=== PATIENT | male | born 1975 | race African-American/Black ===

== ENCOUNTER 2019-12-19 04:10 | Emergency (ER) | payer BC ==
[2019-12-19] MEDS ORDERED: HYDROCODONE/ACETAMINOPHEN 5-325 MG (6 TAB/ER DISP) PO PRN (05:57)
--- NOTE | 2019-12-19 06:01 | ER Document Report ---
ED General - General Chief Complaint: Abscess Stated Complaint: JAW PAIN Time Seen by Provider: 12/19/19 05:45 Primary Care Provider: [facility] [Provider Group] - Follow up in 3-5 days FREDDY BARNES MD [COMMUNITY BASED STAFF] - Follow up in 3-5 days Notes: 44-year-old male presents with 5-day history of possible abscesses to left jaw. Patient states he has a history of ingrown hairs. Patient denies any fever. Patient states he squeezed the abscesses and there was pus drainage with mild relief in swelling. Patient denies any previous history of abscess. Patient has no past medical history of diabetes. TRAVEL OUTSIDE OF THE [place] IN LAST 30 DAYS: No - Related Data Allergies/Adverse Reactions: No Known Allergies Allergy (Verified 12/19/19 05:05) Past Medical History - Social History Smoking Status: Current Every Day Smoker Family History: Reviewed & Not Pertinent Patient has suicidal ideation: No Patient has homicidal ideation: No Past Surgical History: Reports: Hx Orthopedic Surgery - Right Foot, Left wrist - Immunizations Hx Diphtheria, Pertussis, Tetanus Vaccination: No Review of Systems - Review of Systems Notes: Constitutional: Negative for fever. HENT: Negative for sore throat. Eyes: Negative for visual changes. Cardiovascular: Negative for chest pain. Respiratory: Negative for shortness of breath. Gastrointestinal: Negative for abdominal pain, vomiting or diarrhea. Genitourinary: Negative for dysuria. Musculoskeletal: Negative for back pain. Skin: Positive for abscess. Negative for rash. Neurological: Negative for headaches, weakness or numbness. 10 point ROS negative except as marked above and in HPI. Physical Exam - Vital signs Vitals: Temp Pulse Resp BP Pulse Ox 98.1 F 72 16 115/62 100 12/19/19 05:11 12/19/19 05:11 12/19/19 05:11 12/19/19 05:11 12/19/19 05:11 - Notes Notes: GENERAL: Well-appearing, well-nourished and in no acute distress. HEAD: Atraumatic, normocephalic. EYES: Extraocular movements intact, sclera anicteric, conjunctiva are normal. ENT: TMs normal, nares patent, oropharynx clear without exudates. Moist mucous membranes. NECK: Normal range of motion, supple without lymphadenopathy or JVD. EXTREMITIES: Normal range of motion, no pitting or edema. No clubbing or cyanosis. NEUROLOGICAL: Cranial nerves II through XII grossly intact. Normal speech, normal gait. PSYCH: Normal mood, normal affect. SKIN: Two small firm areas noted to left jaw. No purulent drainage or erythema. Approximately 1-2 cm. Not fluctuant. Warm, Dry, normal turgor, no rashes or lesi ons noted. Course - Re-evaluation Re-evalutation: 12/19/19 Nontoxic, well appearing 44 male presents for 2 abscesses to left jaw. Afebrile. Non-tachycardic. No fluctuance. No erythema. No purulent drainage. Pt prescribed Bactroban and Keflex. Pt to return to ER in 48 hours for recheck. Pt given strict return precautions and follow up with PCP. Pt voices understanding and agrees with plan of care. - Vital Signs Vital signs: Temp Pulse Resp BP Pulse Ox 98.1 F 72 16 115/62 100 12/19/19 05:11 12/19/19 05:11 12/19/19 05:11 12/19/19 05:11 12/19/19 05:11 Discharge - Discharge Clinical Impression: Abscess Condition: Stable Disposition: HOME, SELF-CARE Instructions: Abscess ([facility]), Cephalexin ([facility]) Additional Instructions: Please take Keflex as prescribed and finish all doses even if you feel better. Please take ibuprofen as prescribed for pain. Please take [place] for breakthrough pain. Do not drink or drive while taking [place] as it may make you drowsy. Please use Bactroban ointment to area as prescribed. Please return to ER for recheck in 48 hours. Please use warm compresses as discussed. Return immediately to ER if you start having any worsening symptoms, including fever, increased swelling, redness to area, area feeling hotter than surrounding skin, inability to swallow, or any other symptoms that are concerning to you. Prescriptions: Mupirocin [Bactroban 2% Ointment 22 gm] 1 applic TP TID #1 tube Cephalexin Monohydrate [Keflex 500 mg Capsule] 500 mg PO Q8 10 Days #40 capsule Ibuprofen [Motrin 800 mg Tablet] 800 mg PO Q8H PRN #30 tab PRN Reason: Forms: Return to Work Referrals: FREDDY BARNES MD [COMMUNITY BASED STAFF] - Follow up in 3-5 days [facility] [Provider Group] - Follow up in 3-5 days
[2019-12-19 06:29] VITALS: BP 126/55
== END 2019-12-19 06:34 | disposition home or self-care (01) ==
LOC: ER 04:10
DX: L02.01 Cutaneous abscess of face (principal); F17.200 Nicotine dependence, unspecified, uncomplicated
CPT/HCPCS: 99282

== ENCOUNTER 2020-05-29 05:28 | Emergency (ER) | payer SELFPAY ==
[2020-05-29 05:41] VITALS: BP 142/86
--- NOTE | 2020-05-29 05:43 | ER Document Report ---
ED General - General Chief Complaint: Laceration Stated Complaint: FINGER LACERATION Time Seen by Provider: 05/29/20 05:36 Notes: 44-year-old [id number] male presents with left index finger laceration to the volar side of his finger with a kitchen knife 2 hours ago. Bleeding controlled. He put salt on the wound for unknown reason. His tetanus is up-to-date is not diabetic and he has no numbness or tingling TRAVEL OUTSIDE OF THE [place] IN LAST 30 DAYS: No - Related Data Allergies/Adverse Reactions: No Known Allergies Allergy (Verified 12/19/19 05:05) Past Medical History - General Information source: Patient - Social History Smoking Status: Unknown if Ever Smoked Family History: Reviewed & Not Pertinent Past Surgical History: Reports: Hx Orthopedic Surgery - Right Foot, Left wrist - Immunizations Hx Diphtheria, Pertussis, Tetanus Vaccination: No Review of Systems - Review of Systems Notes: REVIEW OF SYSTEMS GEN: Denies fever, chills, weight loss ENT: Denies sore throat, nasal discharge, ear pain EYES: Denies blurry vision, eye pain, discharge CV: Denies chest pain, palpitations, edema RESP: Denies cough, shortness of breath, wheezing GI: Denies abdominal pain, nausea, vomiting, diarrhea MSK: Finger laceration SKIN: Denies rash, skin lesions LYMPH: Denies swollen glands/lymph nodes NEURO: Denies headache, focal weakness or numbness, dizziness PSYCH: Denies depression, suicidal or homicidal ideation PHYSICAL EXAMINATION General: No acute distress, well-nourished Head: Atraumatic, normocephalic ENT: Mouth normal, oropharynx moist, lips normal Eyes: Conjunctiva normal, pupils equal, lids normal Neck: No JVD, supple, no guarding Resp: No resp distress, equal chest rise GI: Nondistended, no guarding Back: No midline or CVA tenderness Ext: No deformities, no edema Skin: Well-perfused, no rash. 1.5 cm laceration middle phalangeal segment left volar index finger, bleeding controlled good distal circulation. No paresthesias. Neuro: Awake, alert. Face symmetric. Course - Re-evaluation Re-evalutation: 05/29/20 05:42 Superficial laceration with knife irrigated and sink, cleaned and closed with Dermabond. I have discussed with the patient there likely diagnosis, aftercare plan, follow-up plans and my usual and customary return precautions. They verbalized understanding of this. Procedures - Laceration/Wound Repair Left Anterior Finger 2nd digit Wound length (cm): 1.6 Wound's Depth, Shape: Superficial, Linear Laceration pre-procedure: Other - High-pressure irrigation and sink Anesthetic type: Other Wound explored: Clean Wound Repaired With: Dermabond - 2 layers Post-procedure NV exam normal: Yes Complications: No Discharge - Discharge Clinical Impression: Laceration of left index finger w/o foreign body w/o damage to nail Qualifiers: Encounter type: initial encounter Qualified Code(s): S61.211A - Laceration with out foreign body of left index finger without damage to nail, initial encounter Condition: Good Disposition: HOME, SELF-CARE Instructions: Laceration Care ([facility]) Additional Instructions: Skin glue will dissolve in 2-3 days
== END 2020-05-29 05:58 | disposition home or self-care (01) ==
LOC: ER 05:28
PROC: 0HQGXZZ Repair Left Hand Skin, External Approach (ICD-10-PCS; principal; 2020-05-29)
DX: S61.211A Laceration without foreign body of left index finger without damage to nail, initial encounter (principal); W26.0XXA Contact with knife, initial encounter
CPT/HCPCS: 12001; G0168; 99283

== ENCOUNTER 2020-09-07 18:31 | Emergency (ER) | payer OTHER ==
--- NOTE | 2020-09-07 18:46 | ER Document Report ---
ED Medical Screen (RME) - General Chief Complaint: Abdominal Pain Stated Complaint: ABDOMINAL PAIN Time Seen by Provider: 09/07/20 18:40 Notes: Patient is a 45-year-old male who presents the emergency department with a chief complaint of abdominal pain and a possible hernia at the upper right side of his abdomen. The patient felt some bowel came out and then he pushed it back in. Patient denies any nausea, vomiting, diarrhea. Exam: Mildly tender right upper abdomen. Small amount of edema to the area. Of note, patient has a raspy voice. States that he has history of vocal cord surgery and this is his normal voice and he does not have a sore throat. I have greeted and performed a rapid initial assessment of this patient. A comprehensive ED assessment and evaluation of the patient, analysis of test results and completion of medical decision making process will be conducted by an additional ED providers. TRAVEL OUTSIDE OF THE [place] IN LAST 30 DAYS: No - Related Data Allergies/Adverse Reactions: No Known Allergies Allergy (Verified 09/07/20 18:41) Past Medical History Past Surgical History: Reports: Hx Orthopedic Surgery - Right Foot, Left wrist - Immunizations Hx Diphtheria, Pertussis, Tetanus Vaccination: No Physical Exam - Vital signs Vitals: Temp Pulse Resp BP Pulse Ox 98.8 F 69 18 124/76 100 09/07/20 18:41 09/07/20 18:41 09/07/20 18:41 09/07/20 18:41 09/07/20 18:41 Course - Vital Signs Vital signs: Temp Pulse Resp BP Pulse Ox 98.8 F 69 18 124/76 100 09/07/20 18:41 09/07/20 18:41 09/07/20 18:41 09/07/20 18:41 09/07/20 18:41
[2020-09-07 19:23] LABS: ABSOLUTE EOSINOPHILS # (AUTO) 0.2 10^3/uL (0.0-0.6); ABSOLUTE LYMPHOCYTES (AUTO) 1.9 10^3/uL (0.5-4.7); ABSOLUTE MONOCYTES (AUTO) 0.5 10^3/uL (0.1-1.4); BASOPHILS % (AUTO) 0.7 % (0-2); EOSINOPHILS % (AUTO) 3.5 % (0-6); HEMATOCRIT 44.2 % (37.9-51.0); HEMOGLOBIN 15.1 g/dL (13.5-17.0); LYMPHOCYTES % (AUTO) 32.9 % (13-45); MEAN CORPUSCULAR HEMOGLOBIN 32.9 pg (27.0-33.4); MEAN CORPUSCULAR HGB CONC 34.2 g/dL (32.0-36.0); MEAN CORPUSCULAR VOLUME 96 fl (80-97); MONOCYTES % (AUTO) 9.1 % (3-13); PLATELET COUNT 228 10^3/uL (150-450); RED CELL DISTRIBUTION WIDTH 13.3 % (11.5-14.0); SEGMENTED NEUTROPHILS % (AUTO) 53.8 % (42-78); TOTAL CELLS COUNTED % (AUTO) 100 %; WHITE BLOOD COUNT 5.7 10^3/uL (4.0-10.5)
[2020-09-07 19:44] LABS: ALBUMIN 4.2 g/dL (3.5-5.0); ALKALINE PHOSPHATASE 100 U/L (38-126); ANION GAP 8 (5-19); ASPARTATE AMINO TRANSFERASE 26 U/L (17-59); BILIRUBIN,DIRECT 0.2 mg/dL (0.0-0.4); BILIRUBIN,TOTAL 0.6 mg/dL (0.2-1.3); BLOOD UREA NITROGEN 16 mg/dL (7-20); CALCIUM 9.4 mg/dL (8.4-10.2); CARBON DIOXIDE 28 mmol/L (22-30); CHLORIDE 104 mmol/L (98-107); GLUCOSE 96 mg/dL (75-110); POTASSIUM 3.8 mmol/L (3.6-5.0); TOTAL PROTEIN 7.4 g/dL (6.3-8.2)
--- NOTE | 2020-09-07 20:30 | ER Document Report ---
ED GI/ - General Chief Complaint: Abdominal Pain Stated Complaint: ABDOMINAL PAIN Time Seen by Provider: 09/07/20 18:40 Mode of Arrival: Ambulatory Information source: Patient Notes: Patient is a 45-year-old male who presents the emergency department with a chief complaint of abdominal pain and a possible hernia at the upper right side of his abdomen. The patient felt some bowel came out and then he pushed it back in. Patient denies any fevers, nausea, vomiting, diarrhea. TRAVEL OUTSIDE OF THE [place] IN LAST 30 DAYS: No - Related Data Allergies/Adverse Reactions: No Known Allergies Allergy (Verified 09/07/20 18:41) Past Medical History - General Information source: Patient - Social History Smoking Status: Former Smoker Chew tobacco use (# tins/day): No Frequency of alcohol use: None Drug Abuse: None Family History: Reviewed & Not Pertinent Patient has homicidal ideation: No - Medical History Medical History: Negative Past Surgical History: Reports: Hx Orthopedic Surgery - Right Foot, Left wrist - Immunizations Hx Diphtheria, Pertussis, Tetanus Vaccination: No Review of Systems - Review of Systems Gastrointestinal: Abdominal pain -: Yes All other systems reviewed and negative Physical Exam - Vital signs Vitals: Temp Pulse Resp BP Pulse Ox 98.8 F 69 18 124/76 100 09/07/20 18:41 09/07/20 18:41 09/07/20 18:41 09/07/20 18:41 09/07/20 18:41 - Notes Notes: PHYSICAL EXAMINATION: GENERAL: Well-appearing, well-nourished and in no acute distress. HEAD: Atraumatic, normocephalic. EYES: Pupils equal round and reactive to light, extraocular movements intact, sclera anicteric, conjunctiva are normal. ENT: Nares patent, oropharynx clear without exudates. Moist mucous membranes. NECK: Normal range of motion, supple without lymphadenopathy LUNGS: Breath sounds clear to auscultation bilaterally and equal. No wheezes rales or rhonchi. HEART: Regular rate and rhythm without murmurs ABDOMEN: Soft, nondistended abdomen. Tenderness just superior and to the right of the umbilicus. No guarding, no rebound. No masses appreciated. Musculoskeletal: Normal range of motion, no pitting or edema. No cyanosis. NEUROLOGICAL: Cranial nerves grossly intact. Normal speech, normal gait. Normal sensory, motor exams PSYCH: Normal mood, normal affect. SKIN: Warm, Dry, normal turgor, no rashes or lesions noted. Course - Re-evaluation Re-evalutation: 09/07/20 20:32 CBC and CMP are unremarkable. Awaiting urinalysis. Overall exam is reassuring. He will be sent for an abdominal ultrasound to evaluate for hernia. Patient has had no history of any abdominal surgeries. Patient is updated on plan of care and is agreeable to same. - Vital Signs Vital signs: Temp Pulse Resp BP Pulse Ox 98.8 F 69 18 124/76 100 09/07/20 18:41 09/07/20 18:41 09/07/20 18:41 09/07/20 18:41 09/07/20 18:41 - Laboratory Result Diagrams: 09/07/20 19:08 09/07/20 19:08 Laboratory results interpreted by me: 09/07/20 20:53 Urine Ascorbic Acid 40 H Discharge - Discharge Clinical Impression: Ventral hernia Qualifiers: Obstruction and gangrene presence: without obstruction or gangrene Qualified Code(s): K43.9 - Ventral hernia without obstruction or gangrene Condition: Stable Disposition: HOME, SELF-CARE Additional Instructions: Hernia You have a hernia. A hernia forms at a weak spot in the abdominal wall. Bowel slips out of the abdominal cavity into the weak spot. Hernias tend to occur in the groin (especially in males), the fold of the thigh, the naval, or at a surgical scar. Surgical repair of the defect is usually necessary. The problem tends to get worse. It's important that you follow up as recommended. For now, you should avoid straining, heavy lifting, and vigorous exercise. Complications occur if the hernia becomes tightly stuck. You should come back immediately if the area becomes increasingly painful, swollen, or discolored, or if you develop abdominal pain and vomiting. The ultrasound shows that you do have a hernia. Fortunately the hernia is not incarcerated so there is nothing life-threatening about it at this time. I would like you to consult the surgical clinic since it is becoming bothersome to you. Do your best to not strain this area until you have seen the surgeon. Please return to the emergency department with any new or worsening concerns as outlined above. Forms: Return to Work Referrals: JANEL GARCIA MD [ACTIVE STAFF] - Follow up as needed
[2020-09-07 21:08] LABS: APPEARANCE,URINE CLEAR; BILIRUBIN,URINE NEGATIVE (NEGATIVE); COLOR,URINE YELLOW; GLUCOSE, URINE NEGATIVE (NEGATIVE); KETONES,URINE NEGATIVE (NEGATIVE); LEUKOCYTE ESTERASE,URINE NEGATIVE (NEGATIVE); NITRITE,URINE NEGATIVE (NEGATIVE); PROTEIN,URINE NEGATIVE (NEGATIVE); URINE SPECIFIC GRAVITY 1.024; UROBILINOGEN,URINE NEGATIVE mg/dL (<2.0)
--- NOTE | 2020-09-07 22:19 | RADIOLOGY REPORT (SQ) ---
EXAM DESCRIPTION: US ABDOMEN LIMITED COMPLETED DATE/TME: 09/07/2020 20:28 CLINICAL HISTORY: 45 years, Male, eval for umbilical/ventral hernia COMPARISON: None. TECHNIQUE: Sonographic evaluation of the anterior right upper quadrant/supraumbilical abdominal wall was performed. LIMITATIONS: None. FINDINGS: Examination demonstrates a small ventral hernia superior to the umbilicus with expression of bowel herniation through the defect with Valsalva (reference cine series 4 images 65 through 134). Defect measures approximately 1 cm in diameter. IMPRESSION: Ventral hernia as above. copyright 2010 [employer]- All Rights Reserved
[2020-09-07 23:32] VITALS: BP 116/74
== END 2020-09-07 23:31 | disposition home or self-care (01) ==
LOC: ER 18:31
DX: K43.9 Ventral hernia without obstruction or gangrene (principal); R10.9 Unspecified abdominal pain; Z87.891 Personal history of nicotine dependence
CPT/HCPCS: 36415; 76705; 80053; 81001; 83690; 85025; 99284

== ENCOUNTER 2020-09-26 05:40 | Day surgery (SDC) | payer OTHER ==
[2020-09-22 11:11] LABS: HEMATOCRIT 45.1 % (37.9-51.0); MEAN CORPUSCULAR HEMOGLOBIN 32.2 pg (27.0-33.4); MEAN CORPUSCULAR HGB CONC 33.4 g/dL (32.0-36.0); MEAN CORPUSCULAR VOLUME 97 fl (80-97); PLATELET COUNT 196 10^3/uL (150-450); RED BLOOD COUNT 4.67 10^6/uL (4.35-5.55); RED CELL DISTRIBUTION WIDTH 13.1 % (11.5-14.0); WHITE BLOOD COUNT 4.7 10^3/uL (4.0-10.5)
[2020-09-22 11:37] LABS: ANION GAP 9 (5-19); BLOOD UREA NITROGEN 17 mg/dL (7-20); CALCIUM 9.7 mg/dL (8.4-10.2); CARBON DIOXIDE 28 mmol/L (22-30); CHLORIDE 103 mmol/L (98-107); GLUCOSE 91 mg/dL (75-110); POTASSIUM 4.6 mmol/L (3.6-5.0)
[~2020-09-26 05:40] MED LIST: ACETAMINOPHEN 325 MG TABLET PO PRN; CEFAZOLIN 2 GM/D5W RTU 2 GM/50 ML RTUPB IV ONE; CEFAZOLIN 2 GM/D5W RTU 2 GM/50 ML RTUPB IV PRN; IBUPROFEN 800 MG in NORMAL SALINE 250 ML IV PRN; LACTATED RINGERS 1000 ML IV PRN; LIDOCAINE 0.5% INJ-PF (5 MG/ML) 50 ML SDV SUBCUT PRN; PREGABALIN 50 MG CAPSULE PO PRN
[2020-09-26] MEDS ORDERED: ACETAMINOPHEN 325 MG TABLET ONE (06:34)
[2020-09-26] MEDS ORDERED: PREGABALIN 50 MG CAPSULE ONE (06:34)
[2020-09-26] MEDS ORDERED: FENTANYL CITRATE INJ/PF 250 MCG/5 ML AMPULE ONE (06:42)
[2020-09-26] MEDS ORDERED: EPHEDRINE SULFATE INJ 50 MG/1 ML AMPULE ONE (06:42)
[2020-09-26] MEDS ORDERED: MIDAZOLAM 2 MG/2 ML INJ ONE (06:42)
[2020-09-26] MEDS ORDERED: SUGAMMADEX SODIUM 200 MG/2 ML SDV IV ONE (06:42)
[2020-09-26] MEDS ORDERED: HYDROMORPHONE HCL INJ/PF 2 MG/ML AMPULE ONE (06:42)
[2020-09-26] MEDS ORDERED: PROPOFOL INJ 200 MG/20 ML VIAL IV ONE (06:43)
[2020-09-26] MEDS ORDERED: BUPIVACAINE HCL 0.25 % INJ/PF (2.5 MG/1 ML) 30 ML VIAL ONE (07:15)
[2020-09-26] MEDS ORDERED: OXYCODONE-ACETAMINOPHEN 5-325 MG TABLET PO PRN ×2 (08:45)
[2020-09-26] MEDS ORDERED: MORPHINE SULFATE 10 MG/ML INJ IV PRN (08:45)
[2020-09-26] MEDS ORDERED: FENTANYL CITRATE INJ/PF 100 MCG/2 ML AMPUL IV PRN ×2 (08:45)
[2020-09-26] MEDS ORDERED: MEPERIDINE HCL/PF INJ 25 MG/1 ML DISP.SYRIN IV PRN (08:45)
[2020-09-26] MEDS ORDERED: PROMETHAZINE HCL INJ 25 MG/1 ML VIAL IV PRN ×2 (08:45)
[2020-09-26] MEDS ORDERED: DIPHENHYDRAMINE HCL 50 MG/ML VIAL IV PRN (08:45)
--- NOTE | 2020-09-26 10:04 | Discharge Summary ---
Discharge Summary (SDC) - Discharge Final Diagnosis: epigastric and umbilical hernias Date of Surgery: 09/26/20 Discharge Date: 09/26/20 Condition: Stable Treatment or Instructions: Discharge home. Diet as tolerated. Activity: No lifting greater than 10 pounds x 6 weeks. Follow-up with [facility] in 7 to 10 days. Okay to shower starting on Tuesday. No tub baths or swimming pools x2 weeks. Prescriptions: Hydrocodone/Acetaminophen [Terreton 10-325 mg Tablet] 1 tab PO Q6HP PRN #14 tablet PRN Reason: For Pain Discharge Diet: As Tolerated Respiratory Treatments at Home: Deep Breathing/Coughing, Incentive Spirometer Discharge Activity: No Lifting Over 10 Pounds, No Lifting/Push/Pulling Home Care Assistance: None Needed Report the Following to Your Physician Immediately: Shortness of Breath, Nausea, Vomiting, Increase in Pain, Fever over 101 Degrees, Unusual Bleeding, Redness
[2020-09-26] MEDS ORDERED: FENTANYL CITRATE INJ/PF 100 MCG/2 ML AMPUL ONE (10:09)
[2020-09-26] MEDS: FENTANYL CITRATE INJ/PF 100 MCG/2 ML AMPUL IV PRN ×2 (10:11→10:22)
--- NOTE | 2020-09-26 10:11 | Operative Report ---
Nonrecallable Operative Report DATE OF SURGERY: 09/26/20 PREOPERATIVE DIAGNOSIS: Epigastric and umbilical hernias, symptomatic POSTOPERATIVE DIAGNOSIS: Same as above OPERATION: Robot-assisted laparoscopic ventral hernia repair with mesh. SURGEON: EPI HAIR ANESTHESIA: GA TISSUE REMOVED OR ALTERED: None COMPLICATIONS: None apparent ESTIMATED BLOOD LOSS: Minimal PROCEDURE: Drains/implants: 15 x [address] hernia mesh. Procedure in detail: After informed consent was obtained, the patient was brought into the operating room and laid in the supine position. The area of the abdomen was prepped and draped in a normal sterile fashion. An incision was created in the left lateral abdomen. The 5 mm camera and 5 mm trocar were then inserted into the abdominal cavity using the Optiview technique. Gas insufflation was attached, and pneumoperitoneum was achieved. Next, a right lower quadrant 8 mm trocar was placed under direct laparoscopic visualization, as well as a left lower quadrant 12 mm balloon trocar. The 5 mm trocar was removed, and replaced with an 8 mm robotic trocar. The robot was then brought over the patient, and docked appropriately. I then assumed my position at the surgeon's console. Attention was turned to the upper midline. There was a larger umbilical hernia defect, as well as a smaller epigastric hernia defect. These 2 defects were approximately 9 cm away from each other. The preperitoneal fat was reduced from the umbilical hernia defect easily. The epigastric hernia defect was smaller, and reduction of all of the preperitoneal fat was difficult. As much as could be performed, the hernia sac was reduced. After this was completed, the midline fascia was reapproximated using number 1 V lock suture in simple running fashion. Once this was complete, the mesh was chosen to adequately cover both defects. A 20 x 15 cm mesh would be necessary. The mesh was inserted into the abdominal cavity. It was apposed to the anterior abdominal wall using the EPS. The mesh was then sutured to the anterior abdominal wall using 2-O V lock suture in simple running fashion. Next, the mesh was inspected. It was found to lie in very good place against the anterior abdominal wall. Once this was confirmed, the robot was undocked, and I scrubbed back in to the patient's bedside. The 8 mm trochar sites were closed using 0 Vicryl suture in simple interrupted fashion, with the aid of the Saul-Francisco device. The 12 mm trocar was closed using 0 Vicryl suture in [id number] fashion, under direct vision. The overlying skin was closed using 4-0 Vicryl Rapide suture in subcuticular fashion. Dressings were placed, and the procedure was concluded. All sponge, instrument, and needle counts were correct x2. Condition: Stable.
[2020-09-26] MEDS ORDERED: MORPHINE SULFATE 10 MG/ML INJ ONE (10:38)
[2020-09-26] MEDS ORDERED: HYDROCODONE/ACETAMINOPHEN 10-325 MG TABLET PO PRN (11:39)
[2020-09-26] MEDS ORDERED: ROCURONIUM BROMIDE INJ 50 MG/5 ML VIAL IV ONE (14:34)
[2020-09-26] MEDS ORDERED: METOCLOPRAMIDE HCL INJ/PF 10 MG/2 ML SDV ONE (14:34)
[2020-09-26] MEDS ORDERED: ONDANSETRON HCL INJ/PF 4 MG/2 ML SDV ONE (14:34)
[2020-09-26] MEDS ORDERED: DEXAMETHASONE SOD PHOSPHATE INJ 4 MG/1 ML VIAL ONE (14:34)
[2020-09-26] MEDS ORDERED: KETOROLAC TROMETHAMINE 60 MG/2 ML SDV ONE (14:34)
[2020-09-26] MEDS ORDERED: SUCCINYLCHOLINE CHLORIDE INJ 200 MG/10 ML VIAL ONE (14:34)
[2020-09-26 17:34] VITALS: BP 116/71
== END 2020-09-26 12:50 | disposition home or self-care (01) ==
LOC: OROUT 05:40
PROVIDERS: ATTEND Surgery
DX: K43.9 Ventral hernia without obstruction or gangrene (principal); K42.9 Umbilical hernia without obstruction or gangrene; Z85.819 Personal history of malignant neoplasm of unspecified site of lip, oral cavity, and pharynx; Z87.891 Personal history of nicotine dependence; R49.0 Dysphonia; Z03.818 Encounter for observation for suspected exposure to other biological agents ruled out
CPT/HCPCS: 86900; 86901; 36415 ×2; 86850; 85027; 87635; 80048; 00790; 49652; C1781; J2250; J3490 ×4; J1100; J1885; J3010 ×2; J2765; J2270; J0330; J2405; J7050; J2704; J0690; J1741; C9803; 790; J1170